=== PATIENT | female | born 1930 | race Caucasian/White ===

== ENCOUNTER 2017-05-19 09:01 | Inpatient (IN) ==
[2017-05-19 09:53] LABS: BASO% 0.3 % (0.0-0.8); EOS# 0.04 X1000 (0.0-0.7); EOS% 0.4 % (0.0-10.0); HEMATOCRIT 34.6 % (37.0-47.0); HEMOGLOBIN 11.7 g/dL (12.0-16.0); IMM GRAN# 0.05 X1000 (0.0-0.04); IMM GRAN% 0.5 % (0.0-0.5); LYMPH# 0.79 X1000 (1.2-3.4); LYMPH% 7.2 % (20.5-51.1); MANUAL DIFF NEEDED? NO; MCH 32.8 PG (27-31); MCHC 33.8 g/dL (33-37); MCV 96.9 FL (81-99); MONO# 0.64 X1000 (0.11-0.59); MONO% 5.8 % (1.7-9.3); MPV 9.2 FL (7.4-10.4); NEUT% 85.8 % (42.2-75.2); PLT 347 X1000 (130-400); RBC 3.57 XMIL (4.2-5.4)
[2017-05-19 09:53] LABS: ALLEN TEST YES; BE -6.4 mmoll (-3.0-3.0); BLOOD TYPE ARTERIAL; DRAW SITE R BRACHIAL; METHB 1.1 % (0.0-1.5); O2(CT) 15.4 mL/dL (15.0-23.0); PCO2(98.6) 30 mmHg (35-45); PO2(98.6) 79 mmHg (60-100); SAMPLE BLOOD; THB 11.4 g/dL (11.5-17.4); pH(98.6) 7.38 (7.35-7.45)
[2017-05-19 09:54] LABS: MODALITY ROOM AIR
[2017-05-19 09:55] LABS: INR 1.2; PROTIME 12.7 Seconds (9.2-11.7)
--- NOTE | 2017-05-19 10:07 | Diag Imaging Result Doc PS360 ---
CHEST-PORTABLE - 05/19/2017 INDICATION: AMS TECHNIQUE: COMPARISON: None FINDINGS: The lungs are normally expanded and clear. Heart size and mediastinal contours are normal. No pneumothorax or pleural effusion. IMPRESSION: Negative exam. Electronically signed by Memo Akbar 05/19/2017 10:05 AM
[2017-05-19 10:13] LABS: AGAP 14; ALBUMIN 2.6 g/dL (3.5-5.0); ALKALINE PHOSPHATASE 117 U/L (32-104); BUN 25 mg/dL (8-22); CALCIUM 9.4 mg/dL (8.8-10.2); CHLORIDE 108 mmol/L (98-107); CK PROFILE 131 U/L (24-173); COSMO 286; GOT 25 U/L (10-30); GPT 12 U/L (10-36); SODIUM 140 mmol/L (136-145); TCO2 18 mmol/L (25-35); TOTAL BILIRUBIN 0.42 mg/dL (0.20-1.00); TOTAL PROTEIN 5.9 g/dL (6.3-8.3)
[2017-05-19 10:37] LABS: URINE MICRO REVIEW NEEDED? NO; URINE SOURCE CATH
[2017-05-19 10:51] LABS: BILIRUBIN URINE NEGATIVE (NEGATIVE); BLOOD URINE MODERATE (NEGATIVE); COLOR YELLOW; GLUCOSE URINE NEGATIVE (NEGATIVE); LEUKOCYTES URINE NEGATIVE (NEGATIVE); NITRITE URINE POSITIVE (NEGATIVE); PH URINE 5.5; PROTEIN URINE TRACE mg/dL (NEGATIVE); SP GRAVITY URINE 1.024; TURBIDITY URINE CLEAR (CLEAR); UROBILINOGEN URINE NORMAL (NORMAL)
[2017-05-19 10:52] LABS: UR AMPHETAMINES QUAL NONE DETECTED (NONE DETECT); UR BARBITUATES QUAL NONE DETECTED (NONE DETECT); UR BENZODIAZEPIN QUAL NONE DETECTED (NONE DETECT); UR CANNABINOIDS QUAL NONE DETECTED (NONE DETECT); UR COCAINE QUAL NONE DETECTED (NONE DETECT); UR METHADONE QUAL NONE DETECTED (NONE DETECT); UR OPIATES QUAL NONE DETECTED (NONE DETECT); UR OXYCODONE QUAL NONE DETECTED (NONE DETECT); UR PCP QUAL NONE DETECTED (NONE DETECT)
[2017-05-19 10:53] LABS: UR EPITHELIAL CELLS <10 /HPF (<10); URINE BACTERIA 3+ /HPF; URINE CULTURE NEEDED? YES; URINE RBC <10 /HPF (<10); URINE WBC <10 /HPF (<10)
--- NOTE | 2017-05-19 11:19 | PROVIDER DOCUMENTATION ---
This chart was entered by Lisa Ruby Scribe, acting as scribe for Miguel Blank MD. HPI-General Adult - General Chief Complaint: Weakness Stated Complaint: WEAKNESS Time Seen by Provider: 05/19/17 09:25 Source: patient, family Allergies/Adverse Reactions: Patient Allergies Allergy/AdvReac Type Severity Reaction Status Date / Time sulfamethoxazole Allergy Unknown Verified 05/19/17 10:03 [From Bactrim] trimethoprim [From Bactrim] Allergy Unknown Verified 05/19/17 10:03 Home Medications: Home Medication List Medication Instructions Recorded Confirmed Last Taken Type Carvedilol [Coreg] 3.125 mg PO DAILY 05/19/17 05/19/17 05/18/17 09:00 History Estrogens, Conjugated [Premarin] 0.625 mg PO DAILY 05/19/17 05/19/17 05/18/17 09 :00 History Levothyroxine [Synthroid] 0.075 mg PO DAILY 05/19/17 05/19/17 05/18/17 09:00 History - History of Present Illness -Gen Adult Nature of Presenting Problems: 86 Y/O F presents to the Er by EMS with the complain of felling weak. Pt family states that she went to restroom last night and was not able to get up by her own. Pt states that she pushed her life alert button and they called her daughter around 7:30 am to let them know that she is in restroom nd needs help. pt family states that they tried to get her up but they couldn't so they called EMS for help. Location of Pain/Injury: reports: generalized (weakness) Onset/Duration: reports: this morning Associated Symptoms: reports: weakness Review of Systems - Adult - REVIEW OF SYSTEMS - ADULT Constitutional: reports: no symptoms reported Eyes: reports: no symptoms reported Ears, Nose, Mouth & Throat: reports: no symptoms reported Cardiovascular: reports: no symptoms reported Respiratory: reports: no symptoms reported Gastrointestinal: reports: no symptoms reported Genitourinary: reports: no symptoms reported Musculoskeletal: reports: other (generalized weakness). denies: back pain, neck pain Integumentary: reports: no symptoms reported Neurological: reports: no symptoms reported Psychiatric: reports: no symptoms reported Endocrine: reports: no symptoms reported Hematologic/Lymphatic: reports: no symptoms reported Allergic/Immunologic: reports: no symptoms reported All Other Systems: Reviewed and Negative Past History - Adult - PAST MEDICAL HISTORY-ADULT Review of Records: reports: Old Records Reviewed, Nursing Assessment Review - IMMUNIZATION STATUS Childhood Immunizations: See Nurse Assessment Flu Vaccine: See Nurse Assessment Physical Exam-General - PHYSICAL EXAM-ADULT Initial Vital Signs Reviewed: Yes - CONSTITUTIONAL General Appearance: appears well, alert - EYES Eyes: PERRL/EOMI, pink conjunctivae - NECK Neck: non-tender, full range of motion - RESPIRATORY Respiratory: lungs clear, normal breath sounds - CARDIOVASCULAR Cardiovascular: regular rate, rhythm, no edema - MUSCULOSKELETAL Back Exam: no CVA tenderness, no vertebral tenderness - SKIN Integumentary: normal color, warm/dry - NEUROLOGIC Neurologic: grossly normal, no motor/sensory deficits - PSYCHIATRIC Psych/Mental Status: normal mood/affect, normal thought content, normal thought process, oriented x 3 Progress - PLAN OF CARE/RESULTS Progress/Plan/Lab Results: Vital Signs - 8 hr 05/19/17 09:13 05/19/17 09:15 Temperature 98.9 F Pulse Rate 107 H 103 H Respiratory Rate 18 15 Blood Pressure 127/78 127/78 O2 Sat by Pulse Oximetry 96 98 Orders Category Date Time Status Cardiac Monitoring DIRECTED Care 05/19/17 09:26 Active Finger Stick Blood Sugar (ED) DIRECTED Care 05/19/17 09:26 Active Oxygen Therapy- ED Nursing DIRECTED Care 05/19/17 09:26 Active Saline Loc NOW Care 05/19/17 09:26 Active CHEST-PORTABLE [RAD] Stat Exams 05/19/17 09:26 Ordered ABG [RESP] Routine Lab 05/19/17 09:26 Ordered ALCOHOL BLOOD Stat Lab 05/19/17 09:31 Ordered CBC WITH ELECTRONIC DIFF [HEME] Stat Lab 05/19/17 09:31 Ordered CK PROFILE [SP CHEM] Stat Lab 05/19/17 09:31 Ordered COMPREHENSIVE METABOLIC PANEL [CHEM] Stat Lab 05/19/17 09:31 Ordered LACTATE, PLASMA [CHEM] Stat Lab 05/19/17 09:26 Uncollected PROTIME WITH INR [COAG] Stat Lab 05/19/17 09:31 Ordered PTT [COAG] Stat Lab 05/19/17 09:31 Ordered TROPONIN T Stat Lab 05/19/17 09:31 Ordered URINALYSIS W/POSS RFLX CULT-1 [URINALYSIS] Stat Lab 05/19/17 09:26 Uncollected URINE DRUG SCREEN Stat Lab 05/19/17 09:26 Uncollected Pulse Oximetry Stat Oth 05/19/17 09:26 Active EKG [EKG] Stat Ther 05/19/17 09:26 Ordered Result Diagrams: 05/19/17 09:19 05/19/17 09:19 - EKG 1 Time of EKG reading by physician:: 09:02 EKG Read and Signed by:: Miguel Blank EKG Interpretation (*Must complete 3 of following elements*): Abnormal Rate: 105 Rhythm: Sinus Tacycardia Comments: Abnormal ECG - XRAY 1 XRAY: Bilateral XRAY Study: Chest Impression: Normal XRAY Interpretation: no acute findings by Dr. Blank Departure - Departure Date of Disposition Decision: 05/19/17 Time of Disposition Decision: 11:18 DIAGNOSIS: Weakness of both lower extremities, UTI (urinary tract infection) Disposition: ADMITTED INPATIENT 09 Certified Medical Emergency: Emergent Condition: Stable - Critical Care Note This patient required my direct & personal management of CC.: No Attestation - Physician/ WILL Attestation The physician spent face to face time with patient:: Yes Advanced Practice Provider documentation review:: The physician spent face to face time with this patient and agrees with all MLP documentation, treatment, and medical decision making by the MLP. See provider notes for further information. This chart was documented by the indicated scribe, (Lisa Ruby Scribe) and accurately reflects the services I performed and decisions made by Abhay brown Christophe I, MD, as attested by the provider's signature.
--- NOTE | 2017-05-19 11:58 | EKG Report ---
Test Performed on : 05/19/2017 09:02:47 AM Test Reason : AMS Blood Pressure : / mmHG Vent. Rate : 105 BPM Atrial Rate : 105 BPM P-R Int : 142 ms QRS Dur : 122 ms QT Int : 350 ms P-R-T Axes : -17 -15 121 degrees QTc Int : 462 ms Sinus tachycardia. Left bundle branch block Abnormal ECG No previous ECGs available Unconfirmed Result
[2017-05-19] MEDS: ZOSYN 3.375 GM/NS 3.375 GM/50 ML IVPB IV SCH ×2 (13:14→17:59)
--- NOTE | 2017-05-19 13:15 | Diag Imaging Result Doc PS360 ---
THORAX/ABDOMEN/PELVIS W/O CONT - 05/19/2017 INDICATION: significant weight loss TECHNIQUE: A CT dose reduction protocol was used. COMPARISON: 05/03/2015 FINDINGS: CHEST: There is a small to moderate pericardial effusion. There is paratracheal lymphadenopathy, worst at the precarinal region. The largest node here measures 3 x 2 cm. There is a small right lower lobe pulmonary nodule measuring about 7 mm. Otherwise no infiltrates. There is exaggerated kyphosis and advanced degeneration throughout the thoracic spine. There is mild compression deformity of T12. This is stable from prior. Abdomen pelvis: There is a grossly stable enlarged, abnormal gallbladder containing some hyperdense gallstones. There is significant wall thickening here similar to prior. No radiodense renal stones. No hydronephrosis or hydroureter. Stable large left renal cyst measuring about 6.7 cm. There is pelvic prolapse, with the rectum and urethra extending far below the pelvic floor. Uterus is absent. Urinary bladder is normal. No bowel obstruction or inflammation. Advanced degenerative changes of the spine and pelvis. No acute bony lesions. IMPRESSION: 1. Suspicious precarinal lymphadenopathy. Reason is unclear. 2. Small to moderate pericardial effusion. 3. Stable severely abnormal gallbladder compatible with chronic cholecystitis and gallstones. 4. New severe pelvic floor prolapse. Electronically signed by Memo Akbar 05/19/2017 1:13 PM
[2017-05-19] MEDS ORDERED: NS 1,000 ML IV PRN (14:35)
[2017-05-19] MEDS ORDERED: ZOFRAN IV PRN (14:35)
--- NOTE | 2017-05-19 15:16 | HISTORY AND PHYSICAL ---
PRIMARY CARE PROVIDER: Dr. Kacey Marinelli. CHIEF COMPLAINT: Weakness. HISTORY OF PRESENT ILLNESS: Ms. Lizzy Serra is an 86-year-old, very ill-appearing, female who appears emaciated yet with lower extremity edema, who has a medical history of urinary incontinence, alopecia since December, ulcerative colitis, hypothyroidism, hypertension, glaucoma, osteoarthritis, presents today with complaints of weakness and decreased appetite. She apparently had gotten up around 2:00 a.m. this morning to go to the bathroom but was unable to get up from the toilet due to decreased strength. Family was able to call 911 and have her sent here. She apparently was on the toilet for about 2-3 hours. When further questioning, back in December she had lost her balance and had fallen. When she presented at the doctor's office, apparently she had a 14 pound weight loss within 3 months, and this was in January. Since December, she has been having alopecia, decreased appetite. She uses a walker to get around but her strength is becoming much weaker. She also states that about once every 2 weeks she will have a 2-3 day spell of diarrhea. She feels gassy. She receives [id number] but does not eat very much of it according to the daughter who is at the bedside. She denies any nausea, vomiting. She denies any fever or chills. Denies blood in the urine or stool. When questioning her on the lower extremity edema, her and the daughter states that it has been going on since 2011 which was when she had her knee surgery. Given her very ill appearance and symptoms, we will go ahead and do a chest, abdomen, pelvis CT for further evaluation. Other lab work that was obtained revealed that she did have an elevated white blood cell count of 11,000 although she is afebrile. A urinalysis was positive for nitrites. She had 3+ bacteria, and she does complain of foul-smelling urine and urinary incontinence and dysuria, so we will treat her for urinary tract infection. Lactate is normal at 1.3. PAST MEDICAL HISTORY: Prolapsed bladder, urinary incontinence for 6-8 months, alopecia since December, ulcerative colitis for years, hypothyroidism, hypertension, left eye glaucoma, osteoarthritis, and chronic bilateral lower extremity edema since 2011. SURGICAL HISTORY: Hysterectomy, left total knee replacement, bilateral lower extremity vein stripped, appendectomy, lower back surgery x2 and bilateral cataract surgery. SOCIAL HISTORY: She lives at home alone. She uses a walker to get around. Her daughter lives within 10-15 minutes away. She quit smoking in 2005 but prior to that was 1 pack per day smoker. Denies alcohol or illicit drug use. FAMILY HISTORY: Mother had arthritis and a murmur. Brother had lung cancer and liver cancer. Another brother had stomach cancer, and her father had coronary artery disease with a heart attack. REVIEW OF SYSTEMS: Fourteen-point review of systems were complete. All were negative except for those mentioned above in HPI. ALLERGIES: Sulfamethoxazole and trimethoprim. HOME MEDICATIONS: 1. Coreg 3.125 p.o. twice daily. 2. Estrogen 0.625 p.o. daily. 3. Synthroid 0.075 p.o. daily. PHYSICAL EXAMINATION: VITAL SIGNS: Temperature 98.8 degrees, heart rate 90, respiratory rate 20, blood pressure 108/61. O2 saturation 96% on room air. HEENT: Atraumatic, normocephalic. Pupils equal, round, reactive to light. Extraocular movements intact. Mucous membranes are dry. NECK: No JVD or carotid bruits noted. CARDIOVASCULAR: S1, S2. Regular rate and rhythm. About a 2/6 systolic murmur. GASTROINTESTINAL: Soft. Left lower quadrant tenderness. Nondistended. Positive bowel sounds x4. LOWER EXTREMITIES: +1 edema. She has +2 dorsalis and radial pulses. SKIN: Warm, dry, intact and pale. NEUROLOGIC: Hard of hearing but follows commands. Moves all extremities equally. Neurologically intact. LABORATORY DATA: White blood cells 11,000. Hemoglobin 11, hematocrit 34, platelet count 347,000. INR 1.2. PTT is 30. ABGs: pH 7.38, pCO2 of 30, PO2 of 79. Bicarb 19. Base excess -6. Saturation 95%. Lactate 1.1; this is on room air. Sodium 140, potassium 4.0. BUN 25, creatinine 0.7, glucose 141. Bilirubin 0.42. AST 25, ALT 12, CK 131, troponin 0.011. Protein 5.9, albumin 2.6. Urinalysis trace protein, 10 ketones, moderate blood, positive nitrites, 3+ bacteria. Urine drug screen negative. Alcohol level is negative. IMAGING: Chest x-ray negative. Heart size and mediastinal contours are normal. No pneumothorax. EKG: Sinus tachycardia. QTc is 462. Abdominal, chest, abdomen, and pelvic CT: Suspicious precarinal lymphadenopathy, reason unclear. Blops-ha-jldkugmb pericardial effusion. Stable severely abnormal gallbladder compatible with chronic cholecystitis and gallstones. New severe pelvic floor prolapse. ASSESSMENT AND PLAN: 1. Urinary tract infection present on admission. We will treat with Zosyn and some IV fluid hydration. 2. Decreased appetite. Significant weight loss. Alopecia. Chest, abdomen, and pelvic CT was ordered for this and, according to the report, there is some suspicious precarinal lymphadenopathy noted. Once she is stable for discharge will possibly need an oncology followup, outpatient visit to further evaluate. 3. Murmur upon assessment. An echocardiogram has been ordered. On the chest x-ray, it did not show an enlarged heart but, on the CT, the impression suggests [id number] pericardial effusion. She does not complain of shortness of breath, just generalized weakness. May consider Cardiology consult once echocardiogram is resulted. 4. Lower extremity edema, chronic in nature. We will do a lower extremity ultrasound just to follow up. 5. Chronic cholecystitis and gallstones found on the CT. 6. Pelvic floor prolapse. 7. Deep venous thrombosis prophylaxis. We will do sequential compression devices. 8. Hypothyroidism. Continue Synthroid. 9. Hypertension. Continue home medications. Dictated by SHAAN Gallegos for Won Bullock MD cc: SHAAN Gallegos MD Sarah E. Styers, MD
--- NOTE | 2017-05-19 16:27 | Extremity Venous Study ---
EXAM: Venous U/S Bilateral Legs HISTORY: For TECHNIQUE: Erazo scale, color Doppler, and duplex evaluation was performed. COMPARISON: None. FINDINGS: The deep veins of the bilateral lower extremities demonstrate appropriate compressibility and augmentation. No intraluminal thrombus is visualized. There is no evidence for DVT. The superficial veins appear patent. IMPRESSION: No evidence for deep venous thrombosis bilateral lower extremities. Electronically signed by Delmy Hull 05/19/2017 4:24 PM
[2017-05-19] MEDS: TYLENOL PO PRN ×2 (19:26→23:12)
[2017-05-19] MEDS: PRILOSEC PO SCH (20:28)
[2017-05-20] MEDS: ZOSYN 3.375 GM/NS 3.375 GM/50 ML IVPB IV SCH ×4 (00:08→19:23)
[2017-05-20] MEDS: PRILOSEC PO SCH ×3 (06:14→20:01)
[2017-05-20] MEDS: SYNTHROID PO SCH (06:14)
[2017-05-20 06:25] LABS: MANUAL DIFF NEEDED? NO
[2017-05-20 06:35] LABS: BASO% 0.3 % (0.0-0.8); EOS# 0.48 X1000 (0.0-0.7); HEMATOCRIT 30.9 % (37.0-47.0); HEMOGLOBIN 10.6 g/dL (12.0-16.0); IMM GRAN# 0.02 X1000 (0.0-0.04); IMM GRAN% 0.2 % (0.0-0.5); LYMPH# 1.27 X1000 (1.2-3.4); LYMPH% 13.2 % (20.5-51.1); MCH 32.8 PG (27-31); MCHC 34.3 g/dL (33-37); MCV 95.7 FL (81-99); MONO# 0.71 X1000 (0.11-0.59); MONO% 7.4 % (1.7-9.3); MPV 9.4 FL (7.4-10.4); NEUT% 73.9 % (42.2-75.2); PLT 333 X1000 (130-400); RBC 3.23 XMIL (4.2-5.4)
[2017-05-20 06:58] LABS: INR 1.25 (0.86-1.15)
[2017-05-20 07:06] LABS: AGAP 12; ALBUMIN 2.2 g/dL (3.5-5.0); ALKALINE PHOSPHATASE 103 U/L (32-104); BUN 26 mg/dL (8-22); CALCIUM 8.4 mg/dL (8.8-10.2); CHLORIDE 110 mmol/L (98-107); COSMO 286; GOT 25 U/L (10-30); GPT 11 U/L (10-36); MAGNESIUM 1.8 mg/dL (1.5-2.7); POTASSIUM 3.6 mmol/L (3.5-5.1); SODIUM 141 mmol/L (136-145); TCO2 19 mmol/L (25-35); TOTAL PROTEIN 5.5 g/dL (6.3-8.3)
--- NOTE | 2017-05-20 09:12 | EKG Report ---
Test Performed on : 05/20/2017 08:25:01 AM Test Reason : rythm analysis Blood Pressure : / mmHG Vent. Rate : 085 BPM Atrial Rate : 085 BPM P-R Int : 134 ms QRS Dur : 122 ms QT Int : 378 ms P-R-T Axes : 051 -12 116 degrees QTc Int : 449 ms Normal sinus rhythm. with sinus arrhythmia. Left bundle branch block Abnormal ECG When compared with ECG of 19-MAY-2017 09:02, (Unconfirmed) No significant change was found Unconfirmed Result
[2017-05-20] MEDS: COREG PO SCH (09:14)
[2017-05-20] MEDS: PREMARIN PO SCH (09:14)
[2017-05-20] MEDS: TYLENOL PO PRN (14:34)
[2017-05-20] MEDS: NORCO-5 PO PRN ×3 (15:11→23:21)
--- NOTE | 2017-05-20 15:49 | ECHO REPORT ---
ORDER DATE: 05/20/2017 INDICATION: Murmur, bilateral lower extremity edema, weakness, hypothyroidism, hypertension. FINDINGS: 1. Right atrium is normal in size at 3.6 cm. 2. Moderate tricuspid regurgitation. RV systolic pressure of 42. 3. Normal RV size and systolic function. 4. Trace pulmonic insufficiency. 5. Mild left atrial enlargement at 4.1 cm. 6. No mitral prolapse. Mild mitral regurgitation. 7. Normal LV size, end-diastolic dimension of 4 cm. Borderline mild left ventricular hypertrophy with a posterior and interventricular septal wall thickness 1.1 and 1.2 cm respectively. Normal LV systolic function. Estimated EF is 55-60% with normal wall motion. 8. Aortic valve opens well although it is somewhat sclerotic. There is no stenosis and no insufficiency. 9. Aorta appears normal on visualized segments. 10. There is a moderate sized circumferential pericardial effusion with a significant amount of fibrin deposition suggesting a somewhat chronic effusion. There is no evidence of tamponade physiology. Respirophasic changes were not assessed. cc: MD Amy Jalloh CRNP
--- NOTE | 2017-05-20 17:24 | CONSULTATION ---
DATE OF CONSULTATION: 05/20/2017 HISTORY OF PRESENT ILLNESS: Patient is an 86-year-old female who is currently being cared for by the hospitalist in the [facility], struggling with multiple medical comorbidities as well as pelvic organ prolapse and an acute cystitis. She has currently been on IV antibiotic therapy and is having electrolytes managed. They are planning on moving her to a rehab facility to help with overall muscle strength. 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 It is not a total eversion, but certainly beyond half of the total vaginal length. Patient is obviously very ill and so because of this, we could not do a lot of a complete exam. I was able to obtain an extra pessary that we had that is a 2.5 inch Gellhorn and decision was made to try to place this based on the measurements that I had. PROCEDURE: A 2.5 inch Gellhorn was placed vaginally quite easily without any difficulty using initially and after reduction of the prolapse. The patient tolerated this well. ASSESSMENT AND PLAN: The patient with Pop-Q stage 4 prolapse based on total vaginal length, who has accepted a 2.5 inch pessary without difficulty. I have instructed the patient as well as the consulting physicians that I need to see her in my office in 4 weeks. cc: Robert Hall MD
--- NOTE | 2017-05-20 20:04 | PROGRESS NOTE ---
DATE: 05/20/2017 SUBJECTIVE: Patient without any new complaints. OBJECTIVE: Vital signs: Temperature 97. Pulse 89, respiratory rate 18, blood pressure 118/61. General: Patient is awake, alert. She is currently in no respiratory distress. HEENT: Normocephalic. Neck: Supple. CARDIOVASCULAR: Regular rate, positive murmur. Chest: Clear. Extremities: 1+ edema. LABORATORY DATA: Essentially unchanged. ASSESSMENT: 1. Severe protein calorie malnutrition. 2. Urinary tract infection. Continue Zosyn. Awaiting cultures. 3. Systolic murmur, likely secondary to mild mitral regurgitation. 4. Chronic cardiac effusion, no tamponade noted. 5. Left lower extremity edema. Ultrasound was negative for deep venous thrombosis. 6. Chronic cholecystitis and gallstones found on computed tomography. 7. Pelvic floor prolapse. Dr. Hall was consulted and a pessary was placed, we will follow up with Dr. Hall in 4 weeks for reevaluation. 8. Hypothyroidism. 9. Hypertension. PLAN: We will continue antibiotics. We will continue treatment. She is currently growing gram- negative rods in urine. Further orders as needed depending on culture results. cc: Pa Ortiz MD
[2017-05-21] MEDS: ZOSYN 3.375 GM/NS 3.375 GM/50 ML IVPB IV SCH ×2 (01:23→06:12)
[2017-05-21] MEDS: NORCO-5 PO PRN ×4 (06:12→20:36)
[2017-05-21] MEDS: PRILOSEC PO SCH ×2 (06:12→20:35)
[2017-05-21] MEDS: SYNTHROID PO SCH (06:12)
[2017-05-21] MEDS: MIRALAX PO SCH (09:01)
[2017-05-21] MEDS: PREMARIN PO SCH (09:01)
[2017-05-21] MEDS: COREG PO SCH (09:01)
[2017-05-21] MEDS: LEVAQUIN PO SCH (09:01)
--- NOTE | 2017-05-21 10:36 | PROGRESS NOTE ---
DATE: 05/21/2017 SUBJECTIVE: Patient notes that she is feeling "so-so". When pressed, she notes that this is a little better than when she came into the emergency department. Denies any diarrhea, constipation. OBJECTIVE: Vital Signs: On physical, temp 98, pulse 92, respiratory rate 18, BP 108/52, satting 97% on room air. General: Patient is awake, alert, pleasant to talk with, lying flat in the bed. HEENT: Normocephalic, atraumatic. LIBIA. Neck: Supple. CV: Regular rate. Chest: Relatively clear. Abdomen: Soft. LABS REVIEWED: Calcium 8.4, albumin 2.2. ASSESSMENT: 1. Urinary tract infection with Escherichia coli sensitive to Levaquin. We will change to oral. 2. Adult failure to thrive with significant weight loss and alopecia. We will continue to encourage oral. 3. Chronic cholecystitis and gallstones found on CT. 4. Hypothyroidism. 5. Hypertension. 6. Moderate tricuspid regurgitation. 7. Moderate protein calorie malnutrition. PLAN: We will change antibiotics. She will follow up with Dr. Hall in a couple weeks after discharge. We will continue to encourage oral. She certainly has an abnormal gallbladder, but do not feel as though she is physically fit enough at the moment to have surgery. We will discuss with family and follow. cc: Pa Ortiz MD
--- NOTE | 2017-05-21 10:44 | DISCHARGE SUMMARY ---
ADMISSION DATE: 05/19/2017 DISCHARGE DATE: 05/22/2017 PRIMARY CARE PROVIDER: Kacey Marinelli MD ADMISSION DIAGNOSES: 1. Urinary tract infection. 2. Severe protein calorie malnutrition. 3. Murmur on assessment. 4. Chronic lower extremity edema. 5. Chronic cholecystitis and gallstones found on CT and a pelvic floor prolapse. DISCHARGE DIAGNOSES: 1. Severe protein calorie malnutrition. 2. An Escherichia coli urinary tract infection. 3. A systolic murmur likely secondary to mild mitral regurgitation. 4. Left lower extremity edema. 5. Chronic cholecystitis and gallstones found on CT. 6. Pelvic floor prolapse. 7. Hypothyroidism. 8. Hypertension. SUMMARY OF FINDINGS: This is an 87-year-old female, who presented to the emergency room at [facility] with left lower extremity edema, appeared very emaciated, had urinary incontinence and alopecia since December. Presents with complaints of weakness and decreased appetite. Family called 911 after she had gone to the bathroom and been on the toilet for approximately 2-3 hours and was too weak to get up and walk back to bed. It appears back in December she had lost her balance and fallen. When she went to the doctor's office the last time, she had a 14 pound weight loss in 3 months and that was in January. She receives Meals On Wheels, but does not eat very much according to the daughter. Her workup showed a white blood cell count of 11,000. She was afebrile. Her urinalysis was positive for nitrites and 3+ bacteria and foul-smelling urine with complaints of urinary incontinence and dysuria. She was admitted to [facility]. She was started on Zosyn and IV hydration. She has been receiving Ensure with each meal of a regular diet. Family requested that Dr. Hall, Urology/OB-CONTACT L[facility] CUTTER, come by to address her prolapsed bladder. He placed a 2.5 inch pessary without difficulty. She is to follow up with him in approximately 4 weeks in his office. She tolerated that procedure well. It is felt that she can safely be discharged to rehab on 05/22/2017. DISCHARGE MEDICATIONS: 1. Coreg 3.125 mg p.o. daily. 2. Premarin 0.625 mg p.o. daily. 3. Levaquin 500 mg p.o. daily for 5 days. 4. Synthroid 75 mcg p.o. daily. 5. MiraLAX 17 g p.o. daily. 6. Lumigan ophthalmic drops to both eyes at bedtime. 7. Celexa 20 mg p.o. daily. 8. Dorzolamide 1 drop to both eyes t.i.d. 9. Fluconazole 1 spray intranasally at bedtime. 10. She has a prescription for [place] 5 one p.o. q. 4 hours p.r.n. #30 no refills. FOLLOWUP: She will follow up with her primary care physician upon completion of rehabilitation, and she will need an appointment scheduled in [address] Hall. TIME SPENT: This is a 35 minute discharge. Dictated by SHAAN Jones for Pa Ortiz MD cc: SHAAN Jones MD Sarah E. Styers, MD Mitchell W. Schuster, MD
[2017-05-21] MEDS ORDERED: CALMOSEPTINE OINTMENT TOP PRN (22:01)
[2017-05-22] MEDS: NORCO-5 PO PRN ×2 (03:15→08:10)
[2017-05-22] MEDS: PRILOSEC PO SCH (06:00)
[2017-05-22] MEDS: SYNTHROID PO SCH (06:01)
[2017-05-22] MEDS: PREMARIN PO SCH (08:09)
[2017-05-22] MEDS: COREG PO SCH (08:10)
[2017-05-22] MEDS: LEVAQUIN PO SCH (08:10)
[2017-05-22] MEDS: MIRALAX PO SCH (08:11)
[2017-05-22 11:10] VITALS: BP 132/64
== END 2017-05-22 11:15 ==
LOC: ED 09:01 → SUATTDRO 12:49 → P.MEDSURG 12:49
PROVIDERS: ATTEND Family Medicine

== ENCOUNTER 2017-07-28 09:57 | Inpatient (IN) ==
[2017-07-28] MEDS ORDERED: MORPHINE IV ONE (10:29)
[2017-07-28] MEDS ORDERED: ZOFRAN IV ONE (10:29)
[2017-07-28] MEDS ORDERED: NS 1,000 ML IV ONE ×2 (10:29→14:33)
[2017-07-28 10:35] LABS: MANUAL DIFF NEEDED? NO
--- NOTE | 2017-07-28 10:58 | Diag Imaging Result Doc PS360 ---
CHEST-PORTABLE - 07/28/2017 INDICATION: AMS TECHNIQUE: COMPARISON: 05/19/2017 FINDINGS: Stable right hemidiaphragm elevation. There is some consolidation at the left lower lobe that is new from prior as seen by loss of the left hemidiaphragm. There is some stable hazy atelectasis at the right base. Heart size remains top normal. Pulmonary vascularity is top normal. IMPRESSION: New significant consolidation of the left lower lobe which is indeterminate. Electronically signed by Memo Akbar 07/28/2017 10:56 AM
[2017-07-28 11:02] LABS: BASO% 0.3 % (0.0-0.8); EOS# 0.01 X1000 (0.0-0.7); HEMATOCRIT 31.3 % (37.0-47.0); HEMOGLOBIN 10.4 g/dL (12.0-16.0); IMM GRAN# 0.08 X1000 (0.0-0.04); IMM GRAN% 0.4 % (0.0-0.5); LYMPH# 2.86 X1000 (1.2-3.4); LYMPH% 13.5 % (20.5-51.1); MCH 32.7 PG (27-31); MCHC 33.2 g/dL (33-37); MCV 98.4 FL (81-99); MONO# 0.67 X1000 (0.11-0.59); MONO% 3.2 % (1.7-9.3); MPV 10.2 FL (7.4-10.4); NEUT% 82.6 % (42.2-75.2); PLT 278 X1000 (130-400); RBC 3.18 XMIL (4.2-5.4)
[2017-07-28 11:11] LABS: ALBUMIN 1.7 g/dL (3.5-5.0); POTASSIUM 4.5 mmol/L (3.5-5.1); TOTAL BILIRUBIN 0.5 mg/dL (0.20-1.00); TOTAL PROTEIN 6.6 g/dL (6.3-8.3)
[2017-07-28] MEDS ORDERED: ZOSYN 3.375 GM in NS 50 ML IV ONE (11:15)
[2017-07-28] MEDS ORDERED: VANCOMYCIN 1 GM/NS 1 GM/250 ML IVPB IV ONE (11:15)
[2017-07-28 11:20] LABS: PROTIME > 120.0 Seconds (12.1-15.5); PTT PL 129.1 Seconds (22.6-43.9)
[2017-07-28 11:21] LABS: INR > 15.00 (0.86-1.15)
--- NOTE | 2017-07-28 12:22 | Diag Imaging Result Doc PS360 ---
CT HEAD W/O CONTRAST - 07/28/2017 INDICATION: AMS with extremely elevated INR TECHNIQUE: A CT dose reduction protocol was used. COMPARISON: None FINDINGS: There is moderate diffuse cerebral atrophy. There is advanced periventricular white matter chronic microvascular disease. There is some cortical hypodensity at the inferior posterior right occipital lobe. An acute cortical infarction here cannot be excluded. No intracranial mass or hemorrhage. The skull is intact. The sinuses are clear. IMPRESSION: 1. Possible acute ischemic changes of the right occipital lobe. Consider a brain MRI for further evaluation. 2. Advanced chronic ischemic changes as described above. Electronically signed by Memo Akbar 07/28/2017 12:19 PM
--- NOTE | 2017-07-28 12:33 | Diag Imaging Result Doc PS360 ---
CT THORAX/ABDOMEN/PELVIS - 07/28/2017 INDICATION: SOB/CP TECHNIQUE: A CT dose reduction protocol was used. COMPARISON: 05/19/2017 FINDINGS: CHEST: There are new small to moderate pleural effusions left greater than right. There is significant collapse of the basilar left lower lobe, with some trace atelectasis at the right lower lobe. Small focal infiltrate at the right upper lobe. There is a moderate pericardial effusion similar to prior. There is enlargement of the precarinal lymphadenopathy. The lymph node now measures 3.8 x 2.3 cm, previously measuring 2.9 x 2 cm. There is worsening right paratracheal adenopathy as well. There is significant body wall edema. Stable advanced degenerative changes of the spine. Stable small sclerotic areas in the thoracic spine. No acute bony lesions. Abdomen pelvis: There is a stable extremely abnormal gallbladder with wall thickening, edema, and large calcified gallstones. There is significant worsening heterogeneous attenuation of the right lobe of the liver. Spleen size remains normal. There is a new oval circumscribed fluid collection in the anterior right pelvic muscular body wall, that measures about 3.7 x 3.1 cm. This displays an obvious hematocrit level. There is a device in the vagina. Urinary bladder and rectum are normal. There is a small amount of pelvic free fluid. There is significant body wall edema. No radiodense renal stones or urinary obstruction. Severe scoliosis and degeneration throughout the lumbar spine. No definite acute bony lesions. IMPRESSION: 1. New pleural effusions. Significant collapse of the left lower lobe. Small infiltrates elsewhere. 2. Significant worsening in indeterminate mediastinal and paratracheal lymphadenopathy. 3. Small intramuscular, rectus sheath hematoma in the anterior right pelvis. 4. Body wall edema. Small amount of ascites. 5. Worsening in the severely abnormal gallbladder containing gallstones. This could represent either inflammation such as cholecystitis, or carcinoma. 6. New significant heterogeneous attenuation of the liver which is nonspecific. Consider a liver ultrasound for further evaluation. 7. The reports were immediately called to the patient's emergency room physician. Electronically signed by Memo Akbar 07/28/2017 12:30 PM
[2017-07-28] MEDS ORDERED: VITAMIN K SUBQ ONE (12:49)
[2017-07-28 13:51] LABS: UR AMPHETAMINES QUAL NONE DETECTED (NONE DETECT); UR BARBITUATES QUAL NONE DETECTED (NONE DETECT); UR BENZODIAZEPIN QUAL NONE DETECTED (NONE DETECT); UR CANNABINOIDS QUAL NONE DETECTED (NONE DETECT); UR COCAINE QUAL NONE DETECTED (NONE DETECT); UR MDMA QUAL NONE DETECTED (NONE DETECT); UR METHADONE QUAL NONE DETECTED (NONE DETECT); UR METHAMPHETAMINE QUAL PRESUMPTIVE POSITIVE (NONE DETECT); UR OPIATES QUAL PRESUMPTIVE POSITIVE (NONE DETECT); UR OXYCODONE QUAL NONE DETECTED (NONE DETECT); UR PCP QUAL NONE DETECTED (NONE DETECT); UR TCA QUAL NONE DETECTED (NONE DETECT)
[2017-07-28 13:53] LABS: BILIRUBIN URINE 2+ (NEGATIVE); BLOOD URINE NEGATIVE (NEGATIVE); CLARITY CLEAR (CLEAR); COLOR RED; GLUCOSE URINE NEGATIVE (NEGATIVE); LEUKOCYTES URINE TRACE (NEGATIVE); NITRITE URINE POSITIVE (NEGATIVE); PH URINE 6.5; PROTEIN URINE 2+(100 mg/dL) mg/dL (NEGATIVE); UROBILINOGEN URINE 4+(12 mg/dL)
[2017-07-28 13:55] LABS: URINE CAST NONE SEEN /LPF; URINE CRYSTAL NONE SEEN /HPF; URINE CULTURE PL NEEDED? YES; URINE EPITHELIAL CELLS >10 /HPF (<10); URINE RBC <10 /HPF (<10); URINE SOURCE CLEAN CATCH
[2017-07-28] MEDS ORDERED: NS 1,000 ML ONE (14:30)
[2017-07-28] MEDS ORDERED: DUONEB (A & A) INH PRN (18:03)
[2017-07-28] MEDS ORDERED: ZOSYN 3.375 GM in NS 50 ML IV SCH (18:15)
[2017-07-28] MEDS ORDERED: VANCOMYCIN IV PER PHARMACY MISC SCH (18:15)
[2017-07-28] MEDS: DUONEB (A & A) INH SCH ×2 (18:25→21:10)
[2017-07-28] MEDS ORDERED: SODIUM CHLORIDE 0.9% INJ SCH (19:00)
[2017-07-28] MEDS ORDERED: NORCO-5 PO PRN (19:01)
[2017-07-28] MEDS ORDERED: ATIVAN IV PRN (19:10)
[2017-07-28] MEDS ORDERED: NS 500 ML IV ONE (19:10)
[2017-07-28] MEDS: MORPHINE IV PRN ×2 (19:15→23:40)
[2017-07-28] MEDS: ZOSYN 2.25 GM in NS 50 ML IV SCH (19:57)
[2017-07-28] MEDS: CLINIMIX E 4.25%-5% SOLUTION 1,000 ML IV SCH (19:58)
[2017-07-28] MEDS: PROTONIX IV SCH (19:58)
[2017-07-28] MEDS ORDERED: PYRIDOXINE PO SCH ×2 (21:00)
[2017-07-28] MEDS: LUMIGAN 0.01% OPH SOLUTION BOTH EYES SCH (22:12)
[2017-07-28] MEDS: MIRALAX PO SCH (22:13)
[2017-07-28] MEDS: MELATONIN PO SCH (22:13)
[2017-07-28] MEDS: PYRIDOXINE PO SCH (22:14)
[2017-07-28] MEDS: REMERON PO SCH (22:14)
[2017-07-28 22:16] LABS: INR 3.25 (0.86-1.15); PROTIME 35.7 Seconds (12.1-15.5)
[2017-07-29] MEDS: ZOSYN 2.25 GM in NS 50 ML IV SCH ×4 (02:40→18:25)
[2017-07-29] MEDS: DUONEB (A & A) INH SCH ×4 (05:19→22:22)
[2017-07-29] MEDS: CLINIMIX E 4.25%-5% SOLUTION 1,000 ML IV SCH ×2 (06:00→17:13)
[2017-07-29 06:18] LABS: HEMATOCRIT 25.1 % (37.0-47.0); MCH 32.3 PG (27-31); MCHC 31.9 g/dL (33-37); MCV 101.2 FL (81-99); RBC 2.48 XMIL (4.2-5.4)
[2017-07-29 06:21] LABS: CALCIUM 7.7 mg/dL (8.8-10.2); POTASSIUM 4.2 mmol/L (3.5-5.1)
[2017-07-29] MEDS: PRILOSEC PO SCH (07:07)
[2017-07-29] MEDS: TRUSOPT 2% OPH SOLN BOTH EYES SCH ×3 (08:48→17:12)
[2017-07-29] MEDS: FLONASE NAS SCH (08:49)
[2017-07-29] MEDS: CELEXA PO SCH (08:54)
[2017-07-29] MEDS: ZYRTEC PO SCH (08:54)
--- NOTE | 2017-07-29 11:28 | Diag Imaging Result Doc PS360 ---
EXAM: MRI BRAIN W/O CONTRAST INDICATION: cva COMPARISON: CT head dated 07/28/2017. No prior MRIs available for comparison. FINDINGS: There is focal restricted diffusion involving the right occipital lobe corresponding to the region of low attenuation seen on the recent CT. This is compatible with a recent infarct. The corresponding signal on the ADC map is only slightly low. This suggests that the infarct is probably late acute to subacute. There is corresponding T2/FLAIR signal in the region. There is additional extensive T2/FLAIR hyperintensity in the periventricular and subcortical white matter with no associated restricted diffusion indicating advanced microangiopathy. There is no discrete intracranial mass, mass effect, or intracranial hemorrhage. There are bilateral mastoid air cell effusions. Around soft tissues and bony structures are grossly unremarkable, otherwise. 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 2.Advanced white matter microangiopathy. The findings were discussed with Josesito Andre MD at 07/29/2017 10:50 AM. Electronically signed by Dylan Julien 07/29/2017 11:26 AM
[2017-07-29 11:41] LABS: INR 4.75 (0.86-1.15); PROTIME 48.2 Seconds (12.1-15.5)
[2017-07-29] MEDS ORDERED: VITAMIN K SUBQ ONE (12:20)
[2017-07-29] MEDS ORDERED: DOPAMINE 800 MG/D5W (PARKWAY ONLY!) 800 MG/250 ML IV.SOLN IV SCH (12:45)
[2017-07-29] MEDS ORDERED: NS 500 ML IV ONE (14:48)
[2017-07-29] MEDS: NEO-SYNEPHRINE 50 MG in NS 250 ML IV SCH ×2 (14:50→20:30)
[2017-07-29] MEDS: MUCOMYST 20% INH SCH ×2 (15:27→22:21)
[2017-07-29] MEDS: PROTONIX IV SCH (18:25)
[2017-07-29] MEDS: LUMIGAN 0.01% OPH SOLUTION BOTH EYES SCH (23:53)
[2017-07-29] MEDS: MELATONIN PO SCH (23:54)
[2017-07-29] MEDS: MIRALAX PO SCH (23:55)
[2017-07-29] MEDS: REMERON PO SCH (23:55)
[2017-07-29] MEDS: PYRIDOXINE PO SCH (23:55)
[2017-07-30] MEDS: ZOSYN 2.25 GM in NS 50 ML IV SCH ×4 (01:45→21:12)
[2017-07-30] MEDS: CLINIMIX E 4.25%-5% SOLUTION 1,000 ML IV SCH ×3 (03:20→17:07)
[2017-07-30] MEDS: DUONEB (A & A) INH SCH ×4 (04:36→22:18)
[2017-07-30 05:59] LABS: HEMATOCRIT 25.8 % (37.0-47.0); HEMOGLOBIN 8.3 g/dL (12.0-16.0); MCH 32.5 PG (27-31); MCHC 32.2 g/dL (33-37); MCV 101.2 FL (81-99); MPV 10.6 FL (7.4-10.4); RBC 2.55 XMIL (4.2-5.4)
[2017-07-30] MEDS: PRILOSEC PO SCH (06:00)
[2017-07-30] MEDS: NEO-SYNEPHRINE 50 MG in NS 250 ML IV SCH ×3 (06:00→17:23)
[2017-07-30 06:13] LABS: CALCIUM 7.7 mg/dL (8.8-10.2); POTASSIUM 4.3 mmol/L (3.5-5.1)
[2017-07-30] MEDS: CELEXA PO SCH (08:52)
[2017-07-30] MEDS: ZYRTEC PO SCH (08:53)
[2017-07-30] MEDS: FLONASE NAS SCH (09:10)
[2017-07-30] MEDS: TRUSOPT 2% OPH SOLN BOTH EYES SCH ×3 (09:10→17:13)
[2017-07-30] MEDS: MUCOMYST 20% INH SCH ×2 (10:21→22:17)
[2017-07-30] MEDS: MORPHINE IV PRN ×3 (10:53→21:09)
[2017-07-30] MEDS ORDERED: SODIUM CHLORIDE 0.9% INJ SCH (12:45)
[2017-07-30] MEDS ORDERED: PROTONIX IV SCH (12:45)
[2017-07-30 12:59] LABS: INR 4.29 (0.86-1.15); PROTIME 44.5 Seconds (12.1-15.5)
--- NOTE | 2017-07-30 13:59 | Diag Imaging Result Doc PS360 ---
EXAM: CHEST-PORTABLE - 07/30/2017 HISTORY: pneumonia TECHNIQUE: Portable chest 12:47 PM COMPARISON: 07/01/2017 FINDINGS: There has been interval increase in basilar opacities. There are possible small bilateral pleural effusions. There is no pneumothorax identified. Heart size is stable. IMPRESSION: Interval increase in basilar opacities. Pneumonia cannot be excluded. Electronically signed by Carlin Matos 07/30/2017 1:57 PM
[2017-07-30] MEDS ORDERED: VITAMIN K SUBQ ONE ×2 (14:53→17:15)
[2017-07-30] MEDS ORDERED: LASIX IV ONE (15:42)
[2017-07-30] MEDS ORDERED: DULCOLAX PR ONE (15:43)
[2017-07-30] MEDS ORDERED: LEVAQUIN 500 MG/D5W 500 MG/100 ML IVPB IV SCH (15:45)
--- NOTE | 2017-07-30 20:33 | Diag Imaging Result Doc PS360 ---
EXAM: KUB ABDOMEN HISTORY: abdominal pain TECHNIQUE: KUB COMMENT: There is some residual contrast medium in the urinary bladder. There is a pessary in the vaginal vault. The bowel gas pattern is unremarkable. There is no definite evidence of mass effect or organomegaly. IMPRESSION: Nonspecific abdomen. See CT report from 07/28/2017. Electronically signed by Rick Blum 07/30/2017 8:30 PM
[2017-07-30] MEDS ORDERED: PRILOSEC PO SCH (21:00)
[2017-07-30] MEDS: LUMIGAN 0.01% OPH SOLUTION BOTH EYES SCH (21:12)
[2017-07-30] MEDS: DULCOLAX PR SCH (21:15)
[2017-07-30 22:01] LABS: OCCULT BLOOD 1 NEGATIVE (NEGATIVE)
[2017-07-31] MEDS: NEO-SYNEPHRINE 50 MG in NS 250 ML IV SCH (00:15)
[2017-07-31] MEDS: ZOSYN 2.25 GM in NS 50 ML IV SCH ×2 (02:10→09:13)
[2017-07-31] MEDS: CLINIMIX E 4.25%-5% SOLUTION 1,000 ML IV SCH ×2 (02:13→09:13)
[2017-07-31] MEDS: DUONEB (A & A) INH SCH (03:51)
--- NOTE | 2017-07-31 07:09 | Diag Imaging Result Doc PS360 ---
EXAM: CHEST-PORTABLE HISTORY: dyspnea TECHNIQUE: AP portable at [id number] COMMENT: There is retrocardiac opacity and mild to atelectasis or pneumonia in the medial right lower lobe. This has improved somewhat since the previous study of 07/30/2017. IMPRESSION: Atelectasis. Possible pneumonia left lower lobe. Improved since 07/30/2017. Electronically signed by Rick Blum 07/31/2017 7:07 AM
[2017-07-31 07:35] LABS: HEMATOCRIT 21.5 % (37.0-47.0); HEMOGLOBIN 6.8 g/dL (12.0-16.0); MCH 32.2 PG (27-31); MCHC 31.6 g/dL (33-37); MCV 101.9 FL (81-99); MPV 10.7 FL (7.4-10.4); RBC 2.11 XMIL (4.2-5.4)
[2017-07-31 07:36] LABS: CALCIUM 7.3 mg/dL (8.8-10.2); POTASSIUM 4.7 mmol/L (3.5-5.1)
[2017-07-31 07:44] LABS: INR 2.92 (0.86-1.15); PROTIME 32.8 Seconds (12.1-15.5)
[2017-07-31] MEDS: MORPHINE IV PRN ×4 (09:02→20:13)
[2017-07-31] MEDS: DULCOLAX PR SCH (09:15)
[2017-07-31] MEDS: MUCOMYST 20% INH SCH (09:16)
[2017-07-31] MEDS ORDERED: NEO-SYNEPHRINE 50 MG in NS 250 ML IV SCH (11:05)
[2017-07-31] MEDS ORDERED: ATIVAN IV PRN (11:06)
[2017-07-31] MEDS ORDERED: ATROPINE 1% OPHTH SOLN SL PRN (11:16)
[2017-07-31] MEDS ORDERED: TYLENOL PO PRN (11:16)
[2017-07-31] MEDS ORDERED: VANCOMYCIN 1 GM/NS 1 GM/250 ML IVPB IV SCH (13:00)
[2017-08-01] MEDS: ATROPINE 1 % OPHTH SOLN SL PRN ×3 (00:51→09:02)
[2017-08-01] MEDS: MORPHINE IV PRN ×3 (04:13→20:48)
[2017-08-01] MEDS ORDERED: ZOFRAN IV ONE (08:07)
[2017-08-01] MEDS: TRANSDERM-SCOP TD SCH (13:09)
[2017-08-02] MEDS ORDERED: VANCOMYCIN 1 GM/NS 1 GM/250 ML IVPB IV SCH (12:00)
[2017-08-04] MEDS: TRANSDERM-SCOP TD SCH (12:06)
[2017-08-05] MEDS: MORPHINE IV PRN (09:54)
[2017-08-05] MEDS ORDERED: ATIVAN SL PRN (10:19)
[2017-08-05] MEDS: ROXANOL CONC. LIQUID PO PRN (21:13)
[2017-08-06] MEDS: ROXANOL CONC. LIQUID PO PRN (08:02)
[2017-08-07] MEDS: TRANSDERM-SCOP TD SCH (11:42)
[2017-08-07] MEDS: ROXANOL CONC. LIQUID PO PRN ×4 (14:28→22:18)
[2017-08-08 07:29] VITALS: BP 78/40
[2017-08-08] MEDS: ROXANOL CONC. LIQUID PO PRN (07:51)
[2017-08-08] MEDS: ATROPINE 1 % OPHTH SOLN SL PRN (07:52)
== END 2017-08-08 08:55 | disposition expired ==
LOC: P.EDIPHOLD 09:57 → P.ED 09:57 → OBSVTOIN 14:22 → SUATTDRO 14:22 → P.ICU 16:47 → P.MEDSURG 07-31 15:19
PROVIDERS: ATTEND Family Medicine